=== PATIENT | male | born 1995 | race Two or more races ===

== ENCOUNTER 2018-11-27 23:42 | Emergency (ER) | payer OTHER ==
[~2018-11-27] VITALS: Ht 175.3 cm; Wt 72.7 kg
[2018-11-28] MEDS ORDERED: IBUPROFEN 800 MG TAB PO ONE (01:00)
[2018-11-28 02:00] LABS: BASO % 0.1 % (0.0-1.0); EOS # 0.2 10^3/uL (0.0-0.50); EOS % 1.5 % (0.0-3.0); HEMOGLOBIN 16.2 g/dl (13.5-17.5); LYMPH # 0.7 10^3/uL (1.5-6.5); LYMPH % 4.9 % (24.0-44.0); MEAN CORPUSCULAR HEMOGLOBIN 28.7 pg (27.0-33.0); MEAN CORPUSCULAR HGB CONC 33.8 g/dl (32.0-36.5); MONO # 0.6 10^3/uL (0.0-0.8); MONO % 4.1 % (0.0-5.0); NEUTROPHILS # 12.3 10^3/uL (1.8-7.7); NEUTROPHILS % 89.1 % (36.0-66.0); PLATELET COUNT, AUTOMATED 273 10^3/uL (150-450); RED BLOOD COUNT 5.65 10^6/uL (4.30-6.10); WHITE BLOOD COUNT 13.8 10^3/uL (4.0-10.0)
[2018-11-28 02:15] LABS: MONO REFLEX EBV VCA IgM NEGATIVE (NEGATIVE)
[2018-11-28 02:20] LABS: BLOOD UREA NITROGEN 23 MG/DL (7-18); CALCIUM LEVEL 9.4 MG/DL (8.5-10.1); CARBON DIOXIDE LEVEL 27 MEQ/L (21-32); CHLORIDE LEVEL 102 MEQ/L (98-107); GLOMERULAR FILTRATION RATE > 60.0 (>60); GLUCOSE, FASTING 101 MG/DL (70-100); POTASSIUM SERUM 4.2 MEQ/L (3.5-5.1); SODIUM LEVEL 138 MEQ/L (136-145)
[2018-11-28] MEDS ORDERED: ONDA4TAB6 PO (02:38)
[2018-11-28] MEDS ORDERED: IBUP80TA PO (02:38)
[2018-11-28 02:47] VITALS: BP 131/60
--- NOTE | 2018-11-28 02:57 | REP ---
Clinical: Acute cough . Comparison: None . Technique: PA and lateral. Findings: The mediastinum and cardiac silhouette are normal. The lung mcdonough are clear and without acute consolidation, effusion, or pneumothorax. The skeletal structures are intact and normal. Impression: 1. No acute cardiopulmonary process. Electronically Signed by Franki Warren MD 11/28/2018 02:49 A
== END 2018-11-28 02:52 | disposition home or self-care (01) ==
LOC: M ED 23:42
DX: B34.9 Viral infection, unspecified (principal); R05 Cough; R50.9 Fever, unspecified; R11.10 Vomiting, unspecified; R51 Headache; M79.10 Myalgia, unspecified site

== ENCOUNTER 2018-11-28 04:31 | Emergency (ER) | payer OTHER ==
[~2018-11-28] VITALS: Ht 175.3 cm; Wt 72.7 kg
[~2018-11-28 04:31] MED LIST: IBUP80TA PO; ONDA4TAB6 PO
[2018-11-28 04:32] VITALS: BP 153/86
[2018-11-28] MEDS ORDERED: NS 1,000 ML IV ONE (06:15)
== END 2018-11-28 06:46 | disposition left against medical advice (07) ==
LOC: M ED 04:31
DX: K52.9 Noninfective gastroenteritis and colitis, unspecified (principal)